=== PATIENT | female | born 1965 | race Caucasian/White ===

== ENCOUNTER 2021-04-18 12:09 | Outpatient (RCR) | payer OTHER ==
[2021-04-18] MEDS ORDERED: LIDOCAINE VISC 2% SOLN 15 ML UDC ONE ×2 (14:20→14:57)
[2021-04-18] MEDS ORDERED: MINERAL OIL/PETROLAT/GLYCERI 6OZ BTL ONE ×2 (14:20→14:57)
== END 2021-05-01 ==
LOC: WCC 12:09
PROVIDERS: ATTEND Internal Medicine Infectious Disease
DX: I87.311 Chronic venous hypertension (idiopathic) with ulcer of right lower extremity (principal); I87.312 Chronic venous hypertension (idiopathic) with ulcer of left lower extremity; L97.811 Non-pressure chronic ulcer of other part of right lower leg limited to breakdown of skin; L97.821 Non-pressure chronic ulcer of other part of left lower leg limited to breakdown of skin; R60.1 Generalized edema; I87.2 Venous insufficiency (chronic) (peripheral); G99.0 Autonomic neuropathy in diseases classified elsewhere; K74.69 Other cirrhosis of liver; I10 Essential (primary) hypertension; G47.00 Insomnia, unspecified; F32.9 Major depressive disorder, single episode, unspecified